=== PATIENT | male | born 1965 | race Caucasian/White ===

== ENCOUNTER 2020-08-30 08:00 | Outpatient (CLI) | payer BC ==
--- NOTE | 2020-08-30 16:57 | XRAY Report ---
PROCEDURE: Ankle 3 View RT INDICATIONS: CONTUSION OF RIGHT ANKLE TECHNIQUE: 3 views of the ankle were acquired. COMPARISON: None FINDINGS: Bones: No fractures or dislocations. Ankle mortise is normally aligned. No suspicious bony lesions . Calcaneal spurring. Soft tissues: No tibiotalar joint effusion. Achilles tendon appears normal. IMPRESSION: No acute fracture. No osseous lesion. If symptoms and/or clinical suspicion for patholog y continue, further assessment with repeat plain films, or advanced imaging (e.g., CT, MRI, or bone s can) is recommended for further assessment. Reviewed by: Dayron Bautista MD on 08/30/2020 4:56 PM PST Approved by: Dayron Bautista MD on 08/30/2020 4:56 PM PST Station ID: [id number]
== END 2020-08-30 23:59 ==
LOC: DI.S 08:00
PROVIDERS: ATTEND Physician Assistant
DX: S90.01XA Contusion of right ankle, initial encounter (principal)